=== PATIENT | male | born 1960 | race Caucasian/White ===

== ENCOUNTER 2017-12-20 00:01 | Emergency (ER) | payer BC ==
[~2017-12-20] VITALS: Ht 172.7 cm; Wt 81.1 kg
[2017-12-20] MEDS ORDERED: ENAL10TA PO (00:31)
[2017-12-20] MEDS ORDERED: METF500T5 PO (00:31)
[2017-12-20] MEDS ORDERED: HYDR-3245 PO (00:31)
[2017-12-20] MEDS ORDERED: INSU100C SQ-INSULIN (00:31)
[2017-12-20] MEDS ORDERED: INSU100V13 SQ (00:31)
[2017-12-20] MEDS ORDERED: ONDANSETRON 2MG/ML, 2ML ONE (00:41)
[2017-12-20] MEDS ORDERED: MORPHINE SULFATE 4 MG/ML, 1ML ONE (00:42)
[2017-12-20 00:56] LABS: BASOPHILS # (AUTO) 0.04 x10^3/uL (0-0.1); BASOPHILS % (AUTO) 0 % (0-1); EOSINOPHILS # (AUTO) 0.17 x10^3/uL (0-0.4); EOSINOPHILS % (AUTO) 2 % (1-7); LYMPHOCYTES # (AUTO) 3.87 x10^3/uL (1-3.4); LYMPHOCYTES % (AUTO) 37 % (22-44); MD NO; MEAN CORPUSCULAR HEMOGLOBIN 30.7 pg (27.5-34.5); MEAN CORPUSCULAR HGB CONC 34.3 g/dL (33.2-36.2); MEAN CORPUSCULAR VOLUME 89.5 fL (81-97); MEAN PLATELET VOLUME 9.4 fL (7.4-10.4); MONOCYTES # (AUTO) 0.73 x10^3/uL (0.2-0.8); MONOCYTES % (AUTO) 7 % (2-9); NEUTROPHILS # (AUTO) 5.53 x10^3/uL (1.8-6.8); NEUTROPHILS % (AUTO) 54 % (42-75); PLATELET COUNT 168 x10^3/uL (130-400); RED BLOOD COUNT 5.14 x10^6/uL (4.38-5.82); RED CELL DISTRIBUTION WIDTH 11.9 % (9.4-14.8)
[2017-12-20] MEDS ORDERED: MORPHINE SULFATE 4 MG/ML, 1ML IVPush SCH (01:00)
[2017-12-20] MEDS ORDERED: ONDANSETRON 2MG/ML, 2ML IVPush ONE (01:00)
[2017-12-20 01:07] LABS: ALANINE AMINOTRANSFERASE 64 U/L (12-78); ALBUMIN 3.6 g/dL (3.4-5.0); ANION GAP 8 mmol/L (5-15); CALCIUM 9.2 mg/dL (8.5-10.1); CHLORIDE 108 mmol/L (98-107); CREATININE 0.84 mg/dL (0.7-1.3)
[2017-12-20 01:09] LABS: ALKALINE PHOSPHATASE 51 U/L (45-117); BILIRUBIN,TOTAL 0.4 mg/dL (0.2-1.0); TOTAL PROTEIN 6.9 g/dL (6.4-8.2)
[2017-12-20 03:17] LABS: MICROSCOPIC INDICATED
[2017-12-20 03:27] LABS: CULTURE INDICATED? NO
[2017-12-20 04:07] VITALS: BP 163/79
== END 2017-12-20 04:09 | disposition home or self-care (01) ==
LOC: ED 00:53
DX: N40.1 Benign prostatic hyperplasia with lower urinary tract symptoms (principal); R33.8 Other retention of urine; R10.30 Lower abdominal pain, unspecified; I10 Essential (primary) hypertension; E11.9 Type 2 diabetes mellitus without complications; Z87.891 Personal history of nicotine dependence
CPT/HCPCS: 36415; 51702; 74177; 80053; 81001; 83605; 83690; 85025; 93005; 96374; 96375; 99285; J2405

== ENCOUNTER 2018-04-21 07:20 | Emergency (ER) | payer BC ==
[~2018-04-21] VITALS: Ht 172.7 cm; Wt 80.7 kg
[~2018-04-21 07:20] MED LIST: ENAL10TA PO; HYDR-3245 PO; INSU100C SQ-INSULIN; INSU100V13 SQ; METF500T17 PO
[2018-04-21] MEDS ORDERED: SULFAMETH./TRIMETHOPRIM DS 800MG/160MG TABLET ONE (07:59)
[2018-04-21] MEDS ORDERED: CEPHALEXIN 500 MG CAPSULE ONE (07:59)
[2018-04-21] MEDS ORDERED: SULFAMETH./TRIMETHOPRIM DS 800MG/160MG TABLET PO ONE (08:00)
[2018-04-21] MEDS ORDERED: CEPHALEXIN 500 MG CAPSULE PO SCH (08:00)
[2018-04-21] MEDS ORDERED: CEPHALEXIN 500 MG CAPSULE PO ONE (08:30)
[2018-04-21 08:44] VITALS: BP 153/77
== END 2018-04-21 08:46 | disposition home or self-care (01) ==
LOC: ED 08:40
DX: L03.211 Cellulitis of face (principal); E11.9 Type 2 diabetes mellitus without complications
CPT/HCPCS: 99283